=== PATIENT | female | born 1940 | race Caucasian/White ===

== ENCOUNTER → 2017-05-31 | Outpatient (CLI) | payer MEDICARE, OTHER ==
[~2017-05-31] MED LIST: AMLO10 PO; ASCO500 PO; Adult Low Dose81 MG PO; CARV6.25; CBD OIL SL; CHLO25B PO; CHOL10002 PO; CLOP75 PO; Calcium 1,2001 EACH; Coreg12.5 MG PO; DIBU30TO PR; ENOX40I SC; ERGO400 PO; ESTNOR; Estradiol0.5 MG PO; FISH OIL + D31 EACH PO; GLYCOLAX PO; HYDACE25S PR; HYDCHL25 PO; HYDCOR2.5C PR; Hair, Skin & N1 EACH PO; LIVALO2 MG PO; LOVA40; MAGOXI400 PO; MIRALAX17 GM PO; Multiple Vitam1 EAC1 PO; NAPR220; NAPR220 PO; PROM25 PO; Percocet 5-3251 EACH PO; Super B Comple150 MG PO; VENL150ER; VENL37.5 PO; VENL75ER PO; VITAMIN D31000 UNIT; Vitamin B Comple1 EA PO; ZESTRIL40 MG PO; calcium PO
[2017-06-01 14:09] LABS: Stool Occult Bld Immuno 1 Negative (NEGATIVE)
== END | disposition home or self-care (01) ==
LOC: LAB SHORT 17:00 → LAB 17:00 → LAB FUT 05-31 14:20
PROVIDERS: Hospitalist
DX: Z13.89 Encounter for screening for other disorder (principal)
CPT/HCPCS: 82274

== ENCOUNTER 2017-08-10 12:56 | Day surgery (SDC) | payer MEDICARE, OTHER ==
[~2017-08-10] VITALS: Ht 160 cm; Wt 76.2 kg
[~2017-08-10 12:56] MED LIST changes: -CBD OIL SL; -ENOX40I SC; -ERGO400 PO; -Hair, Skin & N1 EACH PO; -PROM25 PO; -Percocet 5-3251 EACH PO; -Vitamin B Comple1 EA PO
[2018-01-09] MEDS ORDERED: Super B Comple150 MG PO (15:26)
[2018-01-09] MEDS ORDERED: ERGO400 PO (15:27)
[2018-01-09] MEDS ORDERED: Hair, Skin & N1 EACH PO (15:27)
[2018-01-09] MEDS ORDERED: Vitamin B Comple1 EA PO (15:36)
[2018-01-09] MEDS ORDERED: CBD OIL SL (15:37)
[2018-01-25] MEDS ORDERED: PROM25 PO (16:33)
[2018-01-25] MEDS ORDERED: Percocet 5-3251 EACH PO (16:34)
[2018-01-25] MEDS ORDERED: ENOX40I SC (16:36)
== END 2017-08-10 15:21 | disposition home or self-care (01) ==
LOC: ORSCSDS 12:56
PROVIDERS: Surgery
PROC: 0DBK8ZX Excision of Ascending Colon, Via Natural or Artificial Opening Endoscopic, Diagnostic (ICD-10-PCS; principal; 2017-08-10 14:15)
DX: K92.1 Melena (principal); D12.2 Benign neoplasm of ascending colon; K64.8 Other hemorrhoids; I25.10 Atherosclerotic heart disease of native coronary artery without angina pectoris; K64.5 Perianal venous thrombosis; Z79.82 Long term (current) use of aspirin; E78.5 Hyperlipidemia, unspecified; I10 Essential (primary) hypertension; Z87.891 Personal history of nicotine dependence; Z79.899 Other long term (current) drug therapy
CPT/HCPCS: 88305

== ENCOUNTER → 2017-11-13 | Outpatient (CLI) | payer MEDICARE, OTHER ==
[~2017-11-13] MED LIST changes: -FISH OIL + D31 EACH PO; +FISH1000; +GLYCOLAX; -GLYCOLAX PO
[2017-11-14 09:07] LABS: Adenovirus F 40/41 Not Detected (NOT DETECT); Astrovirus Not Detected (NOT DETECT); Campylobacter Sp Not Detected (NOT DETECT); Cryptosporidium Not Detected (NOT DETECT); Cyclospora Cayetanensis Not Detected (NOT DETECT); E. Coli O157 Not Detected (NOT DETECT); Entamoeba Histolytica Not Detected (NOT DETECT); Enteroaggregative E. coli-EAEC Not Detected (NOT DETECT); Enteropathogenic E. coli-EPEC Not Detected (NOT DETECT); Enterotoxigenic E. coli-ETEC Not Detected (NOT DETECT); Giardia Lamblia Not Detected (NOT DETECT); Norovirus GI/GII Not Detected (NOT DETECT); Plesiomonas Shigelloides Not Detected (NOT DETECT); Rotavirus A Not Detected (NOT DETECT); Salmonella Sp Not Detected (NOT DETECT); Sapovirus Not Detected (NOT DETECT); Shiga Toxin-prod E. coli-STEC Not Detected (NOT DETECT); Shigella/Enteroin E. coli-EIEC Not Detected (NOT DETECT); Vibrio Cholerae Not Detected (NOT DETECT); Vibrio Sp Not Detected (NOT DETECT); Yersinia Enterocolitica Not Detected (NOT DETECT)
== END ==
LOC: LAB 17:36 → LAB SHORT 17:36
PROVIDERS: Physician Assistant Medical
DX: R10.9 Unspecified abdominal pain (principal)
CPT/HCPCS: 87507

== ENCOUNTER 2018-12-31 01:00 | Observation (INO) | payer MEDICARE, OTHER ==
[~2018-12-31] VITALS: Ht 160 cm; Wt 73.6 kg
[~2018-12-31 01:00] MED LIST changes: +CBD OIL SL; +ENOX40I SC; +FISH OIL + D31 EACH PO; -FISH1000; -GLYCOLAX; +GLYCOLAX PO; +Hair, Skin & N1 EACH PO; +PROM25 PO; +Percocet 5-3251 EACH PO; +Prinivil10 MG PO; +VITAMIN D5000 UNIT PO; +Vitamin B Comple1 EA PO; -ZESTRIL40 MG PO
[2018-12-31 02:40] LABS: BASOPHILS ABSOLUTE AUTO 0.02 K/mm3 (0.00-0.23); BASOPHILS PERCENT AUTO 0 % (0-2); EOSINOPHILS ABSOLUTE AUTO 0.05 K/mm3 (0.00-0.68); EOSINOPHILS PERCENT AUTO 1 % (0-6); Hematocrit 27.3 % (33.0-51.0); Hemoglobin 9.2 g/dL (11.5-16.0); IMMATURE GRAN ABSOLUTE AUTO 0.03 K/mm3 (0.00-0.10); IMMATURE GRAN PERCENT AUTO 0 % (0-1); LYMPHOCYTES ABSOLUTE AUTO 1.46 K/mm3 (0.84-5.20); LYMPHOCYTES PERCENT AUTO 15 % (21-46); MONOCYTES ABSOLUTE AUTO 0.39 K/mm3 (0.16-1.47); MONOCYTES PERCENT AUTO 4 % (4-13); Mean Corpuscular HGB 31.8 pg (26.0-34.0); Mean Corpuscular HGB Conc 33.7 g/dL (31.5-36.5); Mean Corpuscular Volume 95 fL (80-100); Mean Platelet Volume 9.8 fL (9.1-12.4); NEUTROPHILS ABSOLUTE AUTO 7.93 K/mm3 (1.96-9.15); NEUTROPHILS PERCENT AUTO 80 % (41-73); Platelet Count 278 K/mm3 (150-400); RDW Standard Deviation 44.9 fL (35.1-46.3); Red Blood Cell Count 2.89 M/mm3 (3.80-5.20); White Blood Cell Count 9.88 K/mm3 (4.00-11.30)
[2018-12-31 02:45] LABS: Source, Urine Clean Catch
[2018-12-31 02:49] LABS: Bilirubin, Urine Neg (Neg); Blood, Urine Neg (Neg); Glucose Qualitative, Urine Neg (Neg); Ketones, Urine Neg (Neg); Leukocyte Esterase, Urine 1+ (Neg); Nitrite, Urine Neg (Neg); Protein, Urine Neg (Neg); Urobilinogen, Urine NORM (Normal); pH, Urine 6.5 (5.0-8.0)
[2018-12-31 02:57] LABS: Appearance, Urine Clear (Clear); Color, Urine Yellow (P-Yellow)
[2018-12-31 02:58] LABS: Bacteria Few /hpf; Red Blood Cells, Urine 0-2 /hpf (0-2); Squamous Epithelial Cells Few /hpf (Few); White Blood Cells, Urine 0-2 /hpf (0-5)
[2018-12-31 03:01] LABS: Alanine Aminotransfer (ALT/SGP 16 U/L (12-78); Albumin, Blood 3.2 g/dL (3.4-5.0); Albumin/Globulin Ratio 1.1 (0.8-1.8); Alk Phos 53 U/L (50-136); Anion Gap 6 mmol/L (6-16); Aspartate Aminotrans (AST/SGOT 10 U/L (12-37); Bilirubin, Total 0.2 mg/dL (0.1-1.0); Blood Urea Nitrogen 45 mg/dL (8-24); Bun/Creatinine Ratio 83.3 (12.0-20.0); CO2, Blood 29 mmol/L (21-32); Calcium, Blood 8.2 mg/dL (8.5-10.1); Chloride, Blood 98 mmol/L (98-108); Creatinine, Blood 0.54 mg/dL (0.40-1.00); Globulin, Blood 2.8 g/dL (2.2-4.0); Glomerular Filtration Rate >60 (60-); Glucose, Blood 126 mg/dL (70-99); Potassium, Blood 3.7 mmol/L (3.5-5.5); Sodium, Blood 133 mmol/L (136-145); Troponin I <0.015 ng/mL (0.000-0.040)
[2018-12-31] MEDS ORDERED: Carvedilol6.25 MG PO (08:25)
[2018-12-31] MEDS ORDERED: PRAVASTATIN SOD10 MG PO (08:26)
[2018-12-31] MEDS ORDERED: NAPR220 PO (08:27)
[2018-12-31] MEDS ORDERED: MIRALAX17 GM PO (08:28)
[2018-12-31 08:57] LABS: Hemoglobin 8.6 g/dL (11.5-16.0); Mean Corpuscular HGB 32.6 pg (26.0-34.0); Mean Corpuscular HGB Conc 34.4 g/dL (31.5-36.5); Mean Corpuscular Volume 95 fL (80-100); Mean Platelet Volume 9.8 fL (9.1-12.4); Platelet Count 279 K/mm3 (150-400); RDW Coefficient Variation 13.2 % (11.7-14.2); Red Blood Cell Count 2.64 M/mm3 (3.80-5.20); White Blood Cell Count 9.18 K/mm3 (4.00-11.30)
[2018-12-31 09:14] LABS: Alanine Aminotransfer (ALT/SGP 17 U/L (12-78); Albumin, Blood 3.2 g/dL (3.4-5.0); Albumin/Globulin Ratio 1.1 (0.8-1.8); Alk Phos 54 U/L (50-136); Anion Gap 6 mmol/L (6-16); Aspartate Aminotrans (AST/SGOT 11 U/L (12-37); Bilirubin, Total 0.2 mg/dL (0.1-1.0); Blood Urea Nitrogen 32 mg/dL (8-24); Bun/Creatinine Ratio 60.6 (12.0-20.0); CO2, Blood 28 mmol/L (21-32); Calcium, Blood 8.2 mg/dL (8.5-10.1); Chloride, Blood 103 mmol/L (98-108); Creatinine, Blood 0.53 mg/dL (0.40-1.00); Globulin, Blood 2.8 g/dL (2.2-4.0); Glomerular Filtration Rate >60 (60-); Glucose, Blood 113 mg/dL (70-99); Potassium, Blood 3.4 mmol/L (3.5-5.5); Sodium, Blood 137 mmol/L (136-145)
[2018-12-31 15:16] LABS: Hematocrit 24.4 % (33.0-51.0); Hemoglobin 8.3 g/dL (11.5-16.0)
--- NOTE | 2018-12-31 16:46 | NUR ---
INTO [facility] VIA [employer]. HISTORY AND ALLERGIES CONFIRMED. LUNGS CLEAR-NO NOTED SOB. NPO STATUS CONFIRMED.
--- NOTE | 2018-12-31 17:30 | NUR ---
12/31/18 1730 Abi Appiah History, Chart, Medications and Allergies reviewed before start of procedure.PATIENT DETERMINED TO BE ASA APPROPRIATE FOR PROPOFOL SEDATION PRIOR TO START OF PROCEDURE BY .MONITOR INTACT WITH CONTINUOUS PULSE OXIMETRY AND INTERMITTENT BP.3-LEAD EKG REVIEWED WITH PHYSICIAN PRIOR TO START OF PROCEDURE.O2 VIA N/C INTACT THROUGHOUT SEDATION/PROCEDURE.
--- NOTE | 2018-12-31 19:00 | NUR ---
SHIFT SUMMARY PT HAS HAD NO COMPLAINTS THIS SHIFT. PT HAD ENDOSCOPY THIS EVENING WITH DR. FINE. IT WAS FOUND PT HAD SEVERAL ULCERS. PT'S DIET CHANGED TO FULL LIQUID DIET AND PT TOLERATING AT THIS TIME. IV SALINE LOCKED. NO REQUESTS AT THIS TIME. CALL LIGHT IN REACH. WILL CONTINUE TO MONITOR AND REPORT TO ONCOMING RN.
--- NOTE | 2019-01-01 05:57 | NUR ---
SUMMARY: A/OX4, CALLS APPROPRIATELY AND IS PLEASANT/COOPERATIVE W/CARE. SHE REMAINS RELUCTANT TO GET OOB D/T PREVIOUS SYNCOPAL EPISODES BUT HAS DENIED DIZZYNESS/LIGHTHEADEDNESS THIS SHIFT. PT USED BEDSIDE TO VOID AND NO BM'S OR RECTAL BLEEDING OBSERVED TONIGHT. SHE'S TOLERATING HER FULL LIQ DIET AND HAS DENIEND NAUSEA/ABDO DISCOMFORT. PT REMAINS NSR W/1ST BLOCK AT 70'S-80'S BPM. PROTONIX BID WAS COMMENCED THIS AM. NO ACUTE CHANGES, VSS/AFEBRILE AND POSSIBLE D/C TODAY. WCTM AND REPORT TO DAY RN.
[2019-01-01] MEDS ORDERED: FERSU300 PO (09:57)
[2019-01-01] MEDS ORDERED: CARV3.125 PO (09:57)
[2019-01-01] MEDS ORDERED: PANT40 PO (09:58)
--- NOTE | 2019-01-01 12:35 | NUR ---
GI CALL THIS RN CALLED DR. FINE'S OFFICE TO NOTIFY THEM DR. LAWLER WAS DISCHARGING PT IF OK WITH HIM. DR. FINE REPORTED OK FOR PT TO DISCHARGE HOME TODAY AND TO FOLLOW UP WITH HIM IN 6 WEEKS. THIS RN TRIED TO SET UP AN APPOINTMENT BUT THE VICE PRESIDENT REGULATORY REPORTS SHE WILL MAKE A NOTE AND CALL PT TO MAKE APPT.
--- NOTE | 2019-01-01 13:53 | NUR ---
DISCHARGE PT DISCHARGED TO HOME. THIS RN EXPLAINED DISCHARGE INSTRUCTIONS AND MEDICATIONS TO PT AND SHE REPORTS SHE UNDERSTANDS. MEDICATIONS WERE FAXED TO [facility] PER REQUEST. IV REMOVED WITHOUT DIFFICULTY. PT TOOK SHOWER BEFORE DISCHARGE. PT TRANSFERRED TO PRIVATE VEHICLE VIA WHEELCHAIR BY NICK. BELONGINGS WITH PT.
== END 2019-01-01 13:36 | disposition home or self-care (01) ==
LOC: ER 01:00 → MEDS 01:01 → ER 05:23 → MEDS 05:23 → ENPENDDIS 01-01 09:49 → MEDS 01-01 13:36
PROVIDERS: Emergency Medicine; Internal Medicine Gastroenterology; ADMIT Internal Medicine
PROC: 0DB68ZX Excision of Stomach, Via Natural or Artificial Opening Endoscopic, Diagnostic (ICD-10-PCS; principal; 2018-12-31 16:45)
DX: K25.4 Chronic or unspecified gastric ulcer with hemorrhage (principal); D62 Acute posthemorrhagic anemia; K26.4 Chronic or unspecified duodenal ulcer with hemorrhage; I95.1 Orthostatic hypotension; K44.9 Diaphragmatic hernia without obstruction or gangrene; I10 Essential (primary) hypertension; M54.12 Radiculopathy, cervical region; E78.5 Hyperlipidemia, unspecified; F32.9 Major depressive disorder, single episode, unspecified; Z91.041 Radiographic dye allergy status; Z88.8 Allergy status to other drugs, medicaments and biological substances; Z79.899 Other long term (current) drug therapy
CPT/HCPCS: 36415; 80053; 81001; 82941; 84484; 85014; 85018; 85025; 85027; 86850; 86900; 86901; 87086; 88305; 88342; 93005; 93010; 96361; 96365; 96375; 96376; 99285-25; C9113; G0378; J2405; J2704; J2916; J7030; J7120

== ENCOUNTER 2019-02-04 07:17 | Day surgery (SDC) | payer MEDICARE, OTHER ==
[~2019-02-04] VITALS: Ht 154.9 cm; Wt 73.0 kg
[~2019-02-04 07:17] MED LIST changes: +CARV3.125 PO; +Carvedilol6.25 MG PO; +FERSU300 PO; +PANT40 PO; +PRAVASTATIN SOD10 MG PO
[2019-02-04] MEDS ORDERED: Azor 5-20 MG T1 EACH (07:50)
== END 2019-02-04 09:22 | disposition home or self-care (01) ==
LOC: ORSCSDS 07:17
PROVIDERS: Internal Medicine Gastroenterology
PROC: 0D778ZZ Dilation of Stomach, Pylorus, Via Natural or Artificial Opening Endoscopic (ICD-10-PCS; principal; 2019-02-04 08:30)
PROC: 0DB98ZX Excision of Duodenum, Via Natural or Artificial Opening Endoscopic, Diagnostic (ICD-10-PCS; principal; 2019-02-04 08:30)
PROC: 0DB68ZX Excision of Stomach, Via Natural or Artificial Opening Endoscopic, Diagnostic (ICD-10-PCS; principal; 2019-02-04 08:30)
DX: K25.9 Gastric ulcer, unspecified as acute or chronic, without hemorrhage or perforation (principal); K44.9 Diaphragmatic hernia without obstruction or gangrene; K31.1 Adult hypertrophic pyloric stenosis; I10 Essential (primary) hypertension; Z87.891 Personal history of nicotine dependence; Z79.899 Other long term (current) drug therapy
CPT/HCPCS: 88305; 88342; C1726; J0330; J0461; J2405; J2704; J7120

== ENCOUNTER 2021-03-13 21:20 | Inpatient (IN) | payer MEDICARE, OTHER ==
[~2021-03-13] VITALS: Ht 160 cm; Wt 80.7 kg
[~2021-03-13 21:20] MED LIST changes: +Azor 5-20 MG T1 EACH
[2021-03-13 21:48] LABS: BASOPHILS ABSOLUTE AUTO 0.03 K/mm3 (0.00-0.23); BASOPHILS PERCENT AUTO 0 % (0-2); EOSINOPHILS ABSOLUTE AUTO 0.19 K/mm3 (0.00-0.68); EOSINOPHILS PERCENT AUTO 3 % (0-6); Hematocrit 41.9 % (33.0-51.0); Hemoglobin 14.4 g/dL (11.5-16.0); IMMATURE GRAN ABSOLUTE AUTO 0.03 K/mm3 (0.00-0.10); IMMATURE GRAN PERCENT AUTO 0 % (0-1); LYMPHOCYTES ABSOLUTE AUTO 1.41 K/mm3 (0.84-5.20); LYMPHOCYTES PERCENT AUTO 20 % (21-46); MONOCYTES ABSOLUTE AUTO 0.56 K/mm3 (0.16-1.47); MONOCYTES PERCENT AUTO 8 % (4-13); Mean Corpuscular HGB 31.8 pg (26.0-34.0); Mean Corpuscular HGB Conc 34.4 g/dL (31.5-36.5); Mean Corpuscular Volume 93 fL (80-100); Mean Platelet Volume 9.6 fL (9.1-12.4); NEUTROPHILS ABSOLUTE AUTO 4.71 K/mm3 (1.96-9.15); NEUTROPHILS PERCENT AUTO 68 % (41-73); Platelet Count 283 K/mm3 (150-400); RDW Coefficient Variation 13.1 % (11.7-14.2); RDW Standard Deviation 44.5 fL (35.1-46.3); Red Blood Cell Count 4.53 M/mm3 (3.80-5.20); White Blood Cell Count 6.93 K/mm3 (4.00-11.30)
[2021-03-13 22:08] LABS: Alanine Aminotransfer (ALT/SGP 34 U/L (12-78); Albumin, Blood 3.7 g/dL (3.4-5.0); Albumin/Globulin Ratio 0.9 (0.8-1.8); Alk Phos 105 U/L (50-136); Anion Gap 6 mmol/L (6-16); Aspartate Aminotrans (AST/SGOT 27 U/L (12-37); Bilirubin, Total 0.3 mg/dL (0.1-1.0); Blood Urea Nitrogen 20 mg/dL (8-24); Bun/Creatinine Ratio 28.8 (12.0-20.0); CO2, Blood 25 mmol/L (21-32); Calcium, Blood 9.1 mg/dL (8.5-10.1); Chloride, Blood 100 mmol/L (98-108); Creatinine, Blood 0.69 mg/dL (0.40-1.00); Globulin, Blood 4.1 g/dL (2.2-4.0); Glomerular Filtration Rate >60 (60-); Glucose, Blood 139 mg/dL (70-99); Sodium, Blood 131 mmol/L (136-145); Total Protein, Blood 7.8 g/dL (6.4-8.2); Troponin I <0.015 ng/mL (0.000-0.040)
[2021-03-14] MEDS ORDERED: EZET10 PO (00:34)
[2021-03-14] MEDS ORDERED: ZINC15 PO (00:34)
[2021-03-14] MEDS ORDERED: CLOP75 PO (00:34)
[2021-03-14] MEDS ORDERED: OMEP20ER PO (00:35)
--- NOTE | 2021-03-14 05:52 | NUR ---
SHIFT SUMMARY PATIENT ADMITTED TO FLOOR AT APPROXIMETLY 0445 FROM ED. PATIENT IS A&OX4, FOLLOWING COMMANDS. VSS. 1ST DEGREE BLOCK IN THE 50'S-60'S ON THE TELE MONITOR. COMPLAINTS OF 6/10 BURNING CP SHORTLY AFTER ARRIVAL. PRN MORPHINE GIVEN WITH GOOD RELIEF AND NO PAIN AT THIS TIME. ALSO VERY NAUSEOUS INTERMITTENTLY. NPO UNTIL KNOW MORE ABOUT PLAN. STEADY UP TO BATHROOM WITHOUT ISSUE. NO ACUTE CONCERNS AT THIS TIME. WILL CONTINUE PLAN OF CARE UNTIL REPORT GIVEN TO DAYSHIFT RN.
--- NOTE | 2021-03-14 08:50 | NUR ---
CARE ASSUMPTION ASSUMED CARE OF THIS PATIENT AT 0700. PATIENT A/OX4. VSS. SPO2 >90% ON RA. TELE SINUS WITH A FIRST DEGREE AV BLOCK 60S. PATIENT REPORTS NO CHEST PAIN, PAIN, OR SOB. PATIENT IS INDEPENDENT IN THE ROOM AND CALLS WHEN NEEDING HELP. CALL LIGHT WITHIN REACH AND BED IN LOWEST POSITION. WILL CONTINUE TO MONITOR AND PROVIDE CARE.
--- NOTE | 2021-03-14 10:13 | NUR ---
CRITICAL VALUE THIS RN RECEIVED A PHONE CALL FROM LAB WITH A CRITICAL HIGH TROP LEVEL AT 6.05 AT 0918 FROM [facility]. THIS RN NOTIFED RADIO ASSEMBLER @ 0918 AND CALLED MD SOARES @ 0919. SPOKE WITH MD SOARES AND PUT IN RETREAD SUPERVISOR CONSULT. PATIENT STATED NO CHEST PAIN AND BP WAS 119/70. MD BRENNER IN TO SEE PATIENT AT APROX 0925, EKG WAS DONE. PATIENT WAS NOT HAVING CHEST PAIN. PATIENT GOT UP TO USE THE BATHROOM AT APROX 0945 AND REPORTED CHEST PAIN. RATED CHEST PAIN AT 3/10. PATIENT RECEIVED FIRST NITRO AT 094P. AT 0952 BP WAS 140/85 AND PAIN 3/10. AT 0954 ANOTHER NITRO WAS GIVEN WITH CHEST PAIN AT 3/10. @ 0957 BP 128/78 3/10 CHEST PAIN. AT 0959 3 NITRO ADMINISTERED CHEST PAIN 3/10. AT 1002 BP WAS 110/64. PATIENT BEGAN TO BECOME NAUSEOUS AND ZOFRAN WAS GIVEN AT 1007 AND PATIENT REPORTS NO CHEST PAIN AT THIS TIME. INFORMED PATIENT TO CALL IF CHEST PAIN COMES BACK. CALL LIGHT WITHIN REACH AND WILL CONTINUE TO MONITOR AND PROVIDE CARE.
[2021-03-14 15:22] LABS: Influenza A, PCR NEGATIVE (NEGATIVE); Influenza B, PCR NEGATIVE (NEGATIVE); Resp Syncytial Virus, PCR NEGATIVE (NEGATIVE); SARS-Cov-2 (COVID-19) PCR, MMC NEGATIVE (NEGATIVE)
--- NOTE | 2021-03-14 17:55 | NUR ---
SHIFT SUMMARY/CRITICAL VALUE CRITICAL TROP VALUE 13.01, THIS RN NOTIFED AT 1703 BY TIMUR IN LAB. THIS RN NOTIFED CHARGED RN VIRAL AT 1703. PATIENT WAS AT LEATHER COVERER AT THE TIME OF THIS RN BEING NOTIFED. PATIENT LEFT TO LEATHER COVERER APROX 1650. PATIENT A/OX4. VSS. TELE FIRST DEGREE AV BLOCK 60S. SPO2 >90% ON RA. PATIENT HAS HAD NO CHEST PAIN SINCE LAST EPISODE OF CHEST PAIN. SEE PERVIOUS NOTE. NO ACUTE CHANGES THIS SHIFT. WILL CONTINUE TO MONITOR AND PROVIDE CARE UNTIL HAND OFF WITH NEXT SHIFT.
--- NOTE | 2021-03-14 18:54 | NUR ---
ARRIVAL FROM COLLOID MILL OPERATOR PATIENT ARRIVED BACK FROM COLLOID MILL OPERATOR AT 1828. RADIAL SITE CLEAN, NO BLEEDING, NO HEMATOMA, AND NON TENDER. Q15 VSS FOR 1 HR. Q30 FOR 1HR. Q1HR FOR 4HR. WILL CONTINUE TO MONITOR AND PROVIDE CARE UNTIL HAND OFF
--- NOTE | 2021-03-15 04:05 | NUR ---
SHIFT SUMMARY PATIENT IS ALERT AND ORIENTED X4. REPORTS 1/10 CHEST DISCOMFORT AT TIMES, PATIENT SR 1ST DEGREE BLOCK IN THE 70s-80s. TR BAND REMOVED AT APPROX 0300, HAD TO REINFLATE D/T SMALL AMOUNT OF BLEEDING. TEGADERM IN PLACE AND ARM BOARD IN PLACE, PATIENT TEACHING PROVIDED ABOUT NOT USING THAT ARM. 02 SATS >95% ON RA. PATIENT ABLE TO AMBULATE. SLEPT MOST THE NIGHT. CALL LIGHT IN REACH.
[2021-03-15] MEDS ORDERED: NITR.4SL SL (10:23)
[2021-03-15] MEDS ORDERED: ASPI81CH PO (10:23)
[2021-03-15] MEDS ORDERED: FAMO40 PO (10:23)
--- NOTE | 2021-03-15 10:28 | NUR ---
80 YOF presented to the ED yesterday due to worsening CP. NSTEMI diagnosis and received cardiac stent mid RCA. Pt. doing well today. Repeat echo demonstrated normal ejection fraction. Pt. cleared by cardiology. Dr. Govea discharging pt. home. Need for continued DAPT x [address] George next month. Scheduled pt. for hospital F/U with PCP Dr. Johnson on 03/24/21 at 3:20 PM per request. No further needs at this time.
--- NOTE | 2021-03-15 11:37 | NUR ---
DISCHARGE UPDATE PT DISCHARGED AT 1137. PT LEFT VIA WHEEL CHAIR WITH BELONGINGS IN BAG AND DISCHARGE INFORMATION ALSO IN BAG. PT WAS OCCOMPANIED BY 2 RN. PT SPOUSE PICKING UP PT AT [facility].
== END 2021-03-15 11:38 | disposition home or self-care (01) | DRG 247 ==
LOC: ER 21:20 → PCU 21:21
PROVIDERS: Internal Medicine Cardiovascular Disease; Physician Assistant; ADMIT Internal Medicine
PROC: 027034Z Dilation of Coronary Artery, One Artery with Drug-eluting Intraluminal Device, Percutaneous Approach (ICD-10-PCS; principal; 2021-03-14)
PROC: 4A023N7 Measurement of Cardiac Sampling and Pressure, Left Heart, Percutaneous Approach (ICD-10-PCS; 2021-03-14)
PROC: B2111ZZ Fluoroscopy of Multiple Coronary Arteries using Low Osmolar Contrast (ICD-10-PCS; 2021-03-14)
DX: I21.4 Non-ST elevation (NSTEMI) myocardial infarction (principal); E87.1 Hypo-osmolality and hyponatremia; E78.00 Pure hypercholesterolemia, unspecified; M54.12 Radiculopathy, cervical region; E78.5 Hyperlipidemia, unspecified; Z96.653 Presence of artificial knee joint, bilateral; I44.30 Unspecified atrioventricular block; Z20.822 Contact with and (suspected) exposure to COVID-19; I10 Essential (primary) hypertension; I25.10 Atherosclerotic heart disease of native coronary artery without angina pectoris; K44.9 Diaphragmatic hernia without obstruction or gangrene; F32.A Depression, unspecified; K21.00 Gastro-esophageal reflux disease with esophagitis, without bleeding; Z88.8 Allergy status to other drugs, medicaments and biological substances; Z91.041 Radiographic dye allergy status; Z90.89 Acquired absence of other organs; Z98.890 Other specified postprocedural states; Z90.710 Acquired absence of both cervix and uterus; Z87.891 Personal history of nicotine dependence; Z98.42 Cataract extraction status, left eye; Z98.41 Cataract extraction status, right eye; Z79.899 Other long term (current) drug therapy; Z79.02 Long term (current) use of antithrombotics/antiplatelets; Z87.11 Personal history of peptic ulcer disease
CPT/HCPCS: 0241U; 36415; 71046; 71260; 76937; 80053; 83690; 84484; 85025; 85347; 85379; 90686; 93005; 93010; 93308; 93321; 93458; 96372; 96375; 96376; 99152; 99153; 99285-25; A9270; C1725; C1751; C1769; C1874; C1887; C1894; C9113; C9600; G0008; G0378; J0153; J0461; J1644; J1650; J1720; J2250; J2270; J2405; J3010; J7030; J7050; Q9967

== ENCOUNTER → 2021-08-24 | Outpatient (CLI) | payer MEDICARE, OTHER ==
[~2021-08-24] MED LIST changes: +ASPI81CH PO; +EZET10 PO; +FAMO40 PO; +NITR.4SL SL; +OMEP20ER PO; +ZINC15 PO
== END | disposition home or self-care (01) ==
LOC: LAB 15:32 → LAB SHORT 15:32
DX: L29.3 Anogenital pruritus, unspecified (principal)
CPT/HCPCS: 87070; 87077; 87186; 87205

== ENCOUNTER 2022-11-29 09:39 | Day surgery (SDC) | payer MEDICARE, OTHER ==
[~2022-11-29] VITALS: Ht 157.5 cm; Wt 77.9 kg
[2022-11-29] MEDS ORDERED: REPATHA SY140 MG/1 M (10:10)
[2022-11-29 12:12] VITALS: BP 114/74
== END 2022-11-29 12:11 | disposition home or self-care (01) ==
LOC: ORSCSDS 09:39
PROVIDERS: Surgery
PROC: 0DBN8ZX Excision of Sigmoid Colon, Via Natural or Artificial Opening Endoscopic, Diagnostic (ICD-10-PCS; principal; 2022-11-29 10:45)
DX: Z12.11 Encounter for screening for malignant neoplasm of colon (principal); Z86.010 Personal history of colon polyps; D12.5 Benign neoplasm of sigmoid colon; K57.30 Diverticulosis of large intestine without perforation or abscess without bleeding; E78.5 Hyperlipidemia, unspecified; I10 Essential (primary) hypertension; F32.A Depression, unspecified; I25.10 Atherosclerotic heart disease of native coronary artery without angina pectoris; I21.9 Acute myocardial infarction, unspecified; Z87.891 Personal history of nicotine dependence; Z79.899 Other long term (current) drug therapy
CPT/HCPCS: 88305; J2704; J7120

== ENCOUNTER 2023-01-25 12:26 | Inpatient (IN) | payer MEDICARE, OTHER ==
[~2023-01-25] VITALS: Ht 157.5 cm; Wt 78.7 kg
[~2023-01-25 12:26] MED LIST changes: +REPATHA SY140 MG/1 M
[2023-01-25 13:07] LABS: BASOPHILS ABSOLUTE AUTO 0.03 K/mm3 (0.00-0.23); BASOPHILS PERCENT AUTO 0 % (0-2); EOSINOPHILS ABSOLUTE AUTO 0.01 K/mm3 (0.00-0.68); EOSINOPHILS PERCENT AUTO 0 % (0-6); Hematocrit 43.7 % (33.0-51.0); Hemoglobin 14.8 g/dL (11.5-16.0); IMMATURE GRAN ABSOLUTE AUTO 0.03 K/mm3 (0.00-0.10); IMMATURE GRAN PERCENT AUTO 0 % (0-1); LYMPHOCYTES ABSOLUTE AUTO 1.44 K/mm3 (0.84-5.20); LYMPHOCYTES PERCENT AUTO 14 % (21-46); MONOCYTES ABSOLUTE AUTO 1.04 K/mm3 (0.16-1.47); MONOCYTES PERCENT AUTO 10 % (4-13); Mean Corpuscular HGB Conc 33.9 g/dL (31.5-36.5); Mean Corpuscular Volume 92 fL (80-100); Mean Platelet Volume 10.3 fL (9.1-12.4); NEUTROPHILS ABSOLUTE AUTO 7.73 K/mm3 (1.96-9.15); NEUTROPHILS PERCENT AUTO 75 % (41-73); Platelet Count 296 K/mm3 (150-400); RDW Coefficient Variation 13.8 % (11.7-14.2); RDW Standard Deviation 47.2 fL (35.1-46.3); Red Blood Cell Count 4.77 M/mm3 (3.80-5.20); White Blood Cell Count 10.28 K/mm3 (4.00-11.30)
[2023-01-25 13:25] LABS: Alanine Aminotransfer (ALT/SGP 29 U/L (12-78); Albumin, Blood 3.5 g/dL (3.4-5.0); Albumin/Globulin Ratio 0.9 (0.8-1.8); Alk Phos 79 U/L (50-136); Anion Gap 7 mmol/L (6-16); Aspartate Aminotrans (AST/SGOT 22 U/L (12-37); Bilirubin, Direct <0.1 mg/dL (0.0-0.3); Bilirubin, Indirect Unable to Calculate mg/dL (0.1-0.7); Bilirubin, Total 0.3 mg/dL (0.1-1.0); Blood Urea Nitrogen 39 mg/dL (8-24); Bun/Creatinine Ratio 56.9 (12.0-20.0); CO2, Blood 22 mmol/L (21-32); Calcium, Blood 9.2 mg/dL (8.5-10.1); Chloride, Blood 106 mmol/L (98-108); Creatinine, Blood 0.69 mg/dL (0.40-1.00); Globulin, Blood 3.9 g/dL (2.2-4.0); Glomerular Filtration Rate 88 (60-); Glucose, Blood 136 mg/dL (70-99); Potassium, Blood 4.5 mmol/L (3.5-5.5); Sodium, Blood 135 mmol/L (136-145); Total Protein, Blood 7.4 g/dL (6.4-8.2)
[2023-01-25 17:11] VITALS: BP 127/77
--- NOTE | 2023-01-25 19:23 | NUR ---
SHIFT SUMMARY PT A&OX4, VSS/RA, N&V TREATED PER EMAR, DENIES PAIN, SHOWERED/SURGICAL INFECTION PREVENTION WASH COMPLETE, AMB SBA, VOIDING, PLAN FOR O.R. TOMORROW. REPORT TO TI AIKEN.
[2023-01-25 19:53] VITALS: BP 135/70
[2023-01-26] VITALS (17 sets, daily range): BP systolic 97–139; BP diastolic 51–85
--- NOTE | 2023-01-26 05:49 | NUR ---
SHIFT SUMMARY ADMIT FOR ACUTE CHOLECYSTITIS. A&OX4, VSS, INDEPENDANT TO BATHROOM, MEDICATED X2 FOR 3-4/10 PAIN AND NAUSEA X1. PT AWAITING PLANS FOR APPENDECTOMY TODAY, THEN HOPES FOR DISCHARGE HOME. CALL LIGHT W/IN REACH.
--- NOTE | 2023-01-26 13:15 | NUR ---
PT IN O.R., NPO ALL SHIFT, INDEPENDENT TO BRP, VOIDING, IVF/ABX INFUSING PER EMAR, PAIN AND N&V MANAGED PER EMAR.
--- NOTE | 2023-01-26 13:24 | NUR ---
[facility]IR[facility] inTO Day Surgery. Patient confirms NPO status and agrees with scheduled surgery. Pre-Op teaching done. Pt verbalizes understanding. History, Chart, Medications and Allergies reviewed before start of procedure.
--- NOTE | 2023-01-26 18:25 | NUR ---
SHIFT SUMMARY PT A&OX4, VSS/RA, CARO PO, VOIDING, AMB SBA, PAIN TREATED WITH OXY 5, IVF @ 75 MLS/HR. S/P LAP LALI, 4 LAP SITES CDI. WILL REPORT TO ONCOMING NOC ATTILA.
--- NOTE | 2023-01-27 01:08 | NUR ---
PT REPORTS POOR PAIN CONTROL AND FEELING PAIN IS "DIFFERENT THAN GALL BLADDER PAIN"PT HAS SLIGHTLY FIRMER AREA MID ABD, ALTHOUGH THIS IS NOT WHERE PT POINTS TO WHEN DISCUSSING PAIN.POINTS TO RUQ.PT WORRYING VERB HX OF BLEEDING ULCER WITH "2 DIFFERENT TYPES OF PAIN PRIOR TO ADMIT AND 1 PAIN HAS RESOLVED WHILE OTHER HAS NOT" VSS.I CALLED DR SCOTT AND RECEIVED ORDERS FOR DILAUDID X1 AND HEMOGRAM.
[2023-01-27 01:40] LABS: Hematocrit 25.5 % (33.0-51.0); Hemoglobin 8.7 g/dL (11.5-16.0); Mean Corpuscular HGB 31.8 pg (26.0-34.0); Mean Corpuscular HGB Conc 34.1 g/dL (31.5-36.5); Mean Corpuscular Volume 93 fL (80-100); Mean Platelet Volume 10.1 fL (9.1-12.4); Platelet Count 191 K/mm3 (150-400); RDW Coefficient Variation 14.4 % (11.7-14.2); RDW Standard Deviation 48.7 fL (35.1-46.3); Red Blood Cell Count 2.74 M/mm3 (3.80-5.20)
--- NOTE | 2023-01-27 02:03 | NUR ---
HEMOGRAM RESULTS CALLED TO DR SCOTT. ADVISED TO MONITOR WITH NO NEW ORERS RECEIVED.
[2023-01-27 02:44] VITALS: BP 121/67
[2023-01-27 06:55] LABS: Hematocrit 23.8 % (33.0-51.0); Hemoglobin 8.1 g/dL (11.5-16.0)
[2023-01-27 07:20] VITALS: BP 123/74
--- NOTE | 2023-01-27 07:53 | NUR ---
SUMMARY DR SCOTT CHECKED ON PT THIS AM VERB THAT DAY DOCTOR WILL FOLLOW UP. DR SOARES ORDERED F/U LAB AND SAW PT. REPEAT LAB 8.06/13.8 I REPORTED THESE RESULTS TO DR SOARES.DR WONG WILL DIXIE PT. PT REPORTS PAIN IS IMPROVED. VS REMAINED STABLE T/O SHIFT. PT ALERT AND OOB FOR VOID WITH SBA THIS AM.
[2023-01-27 12:19] LABS: BASOPHILS PERCENT AUTO 0 % (0-2); EOSINOPHILS PERCENT AUTO 0 % (0-6); Hematocrit 23.2 % (33.0-51.0); Hemoglobin 7.9 g/dL (11.5-16.0); IMMATURE GRAN ABSOLUTE AUTO 0.02 K/mm3 (0.00-0.10); IMMATURE GRAN PERCENT AUTO 0 % (0-1); LYMPHOCYTES ABSOLUTE AUTO 0.91 K/mm3 (0.84-5.20); LYMPHOCYTES PERCENT AUTO 14 % (21-46); MONOCYTES ABSOLUTE AUTO 0.45 K/mm3 (0.16-1.47); MONOCYTES PERCENT AUTO 7 % (4-13); Mean Corpuscular HGB 31.6 pg (26.0-34.0); Mean Corpuscular HGB Conc 34.1 g/dL (31.5-36.5); Mean Corpuscular Volume 93 fL (80-100); Mean Platelet Volume 9.7 fL (9.1-12.4); NEUTROPHILS ABSOLUTE AUTO 5.01 K/mm3 (1.96-9.15); NEUTROPHILS PERCENT AUTO 79 % (41-73); Platelet Count 185 K/mm3 (150-400); RDW Coefficient Variation 14.2 % (11.7-14.2); RDW Standard Deviation 48.2 fL (35.1-46.3); White Blood Cell Count 6.39 K/mm3 (4.00-11.30)
[2023-01-27 14:09] VITALS: BP 112/66
--- NOTE | 2023-01-27 15:57 | NUR ---
SUMMARY: PT IS POD1 LAP LALI. A/O, VSS. SURGICAL SITES WNL AND PAIN APPEARS TO BE MANAGED WITH 1 OXY. PT AMBULATORY IN ROOM, VOIDING. CT OF ABD/PELVIS COMPLETED TODAY, NO BLEED NOTED. PLAN IS FOR GI CONSULT, AVALIBLE MONDAY AND FOR CONTINUING TO MONITOR HGB. PT DENIES ANY DIZZINESS. PT AWARE OF PLAN OF CARE.
[2023-01-27 19:34] VITALS: BP 101/57
[2023-01-28 04:53] LABS: BASOPHILS ABSOLUTE AUTO 0.01 K/mm3 (0.00-0.23); BASOPHILS PERCENT AUTO 0 % (0-2); EOSINOPHILS ABSOLUTE AUTO 0.03 K/mm3 (0.00-0.68); EOSINOPHILS PERCENT AUTO 1 % (0-6); Hematocrit 21.7 % (33.0-51.0); Hemoglobin 7.2 g/dL (11.5-16.0); IMMATURE GRAN PERCENT AUTO 0 % (0-1); LYMPHOCYTES ABSOLUTE AUTO 1.48 K/mm3 (0.84-5.20); LYMPHOCYTES PERCENT AUTO 29 % (21-46); MONOCYTES ABSOLUTE AUTO 0.32 K/mm3 (0.16-1.47); MONOCYTES PERCENT AUTO 6 % (4-13); Mean Corpuscular HGB 31.6 pg (26.0-34.0); Mean Corpuscular HGB Conc 33.2 g/dL (31.5-36.5); Mean Corpuscular Volume 95 fL (80-100); NEUTROPHILS ABSOLUTE AUTO 3.21 K/mm3 (1.96-9.15); NEUTROPHILS PERCENT AUTO 64 % (41-73); Platelet Count 184 K/mm3 (150-400); RDW Coefficient Variation 14.4 % (11.7-14.2); RDW Standard Deviation 50.3 fL (35.1-46.3); Red Blood Cell Count 2.28 M/mm3 (3.80-5.20); White Blood Cell Count 5.05 K/mm3 (4.00-11.30)
[2023-01-28 05:03] VITALS: BP 128/67
[2023-01-28 05:14] LABS: Albumin, Blood 2.6 g/dL (3.4-5.0); Bilirubin, Total 0.2 mg/dL (0.1-1.0); Bun/Creatinine Ratio 22.1 (12.0-20.0); Calcium, Blood 7.7 mg/dL (8.5-10.1); Creatinine, Blood 0.77 mg/dL (0.40-1.00); Globulin, Blood 2.6 g/dL (2.2-4.0); Potassium, Blood 4.7 mmol/L (3.5-5.5); Total Protein, Blood 5.2 g/dL (6.4-8.2)
--- NOTE | 2023-01-28 06:10 | NUR ---
SHIFT SUMMARY POD#2 LAP LALI NO ACUTE CHANGES NOTED THROUGH THE NIGHT, PT REMAINS A&O X4, ON RA, VSS, 1 PERSON ASSIST TO THE BATHROOM, SLIGHT DIZZINESS REPORTED UPON STANDING BUT QUICKLY RECOVERS, PT IS TOLERATING PO INTAKE, DENIES NAUSEA/EMESIS, NO STOOLS REPORTED, PASSING FLATUS, VOIDING WNL, LAP SITES X4, C/D/I, PAIN MANAGED PER EMAR, DB&C WHILE SPLINTING ENC, PT RESTING QUIETLY THIS AM, CALL LIGHT IN REACH, WCTM & REPORT TO DAY RN.
[2023-01-28 07:16] VITALS: BP 105/61
--- NOTE | 2023-01-28 19:23 | NUR ---
SHIFT SUMMARY PT POD 2 LAP LALI. LAP SITES C/D/I. PAIN WELL MANAGED WITH PO PAIN MED. PLAN TO RECHECK HGB IN AM, FOLLOW UP WITH GI
[2023-01-28 19:30] VITALS: BP 105/58
--- NOTE | 2023-01-28 20:10 | NUR ---
MEDICATION REFUSAL PT DECLINES HS MEDICATIONS OF HEPARIN AND SENOKOT. PT REPORTS UNSURE OF TAKING HEPARIN R/T CURRENT DECLINE IN HEMOGLOBIN. EDUCATED PT OF RISKS AND PT HX OF [place]. PT VERBALIZES UNDERSTANDING BUT REPORTS SHE IS REQUESTING ENDOSCOPY POSSIBLY TOMORROW AND WILL F/U W/ PCP REGARDING HEPARIN AND SCOPE/ BLEEDING RISKS. PT AGREED TO PLACEMENT OF SCD'S AT THIS TIME. PT ALSO DECLINED SENOKOT DOSE THIS EVENING R/T MIRLAX ORDERED/ RECEIVING
[2023-01-29 04:31] VITALS: BP 138/64
[2023-01-29 04:41] LABS: BASOPHILS ABSOLUTE AUTO 0.02 K/mm3 (0.00-0.23); BASOPHILS PERCENT AUTO 0 % (0-2); EOSINOPHILS ABSOLUTE AUTO 0.25 K/mm3 (0.00-0.68); EOSINOPHILS PERCENT AUTO 5 % (0-6); Hemoglobin 7.4 g/dL (11.5-16.0); IMMATURE GRAN ABSOLUTE AUTO 0.03 K/mm3 (0.00-0.10); IMMATURE GRAN PERCENT AUTO 1 % (0-1); LYMPHOCYTES ABSOLUTE AUTO 2.14 K/mm3 (0.84-5.20); LYMPHOCYTES PERCENT AUTO 39 % (21-46); MONOCYTES ABSOLUTE AUTO 0.39 K/mm3 (0.16-1.47); MONOCYTES PERCENT AUTO 7 % (4-13); Mean Corpuscular HGB 30.8 pg (26.0-34.0); Mean Corpuscular HGB Conc 32.2 g/dL (31.5-36.5); Mean Corpuscular Volume 96 fL (80-100); Mean Platelet Volume 9.9 fL (9.1-12.4); NEUTROPHILS ABSOLUTE AUTO 2.66 K/mm3 (1.96-9.15); NEUTROPHILS PERCENT AUTO 48 % (41-73); Platelet Count 216 K/mm3 (150-400); RDW Coefficient Variation 14.5 % (11.7-14.2); RDW Standard Deviation 50.9 fL (35.1-46.3); White Blood Cell Count 5.49 K/mm3 (4.00-11.30)
--- NOTE | 2023-01-29 05:48 | NUR ---
SHIFT SUMMARY POD 3, LAP LALI, 4 INCISION SITES C/D/I W/ TISSUE ADHESIVE. PT REPORTS CONTINUED PAIN TO RUQ. MEDICATED 2X THIS SHIFT FOR 3/10 PAIN W/ 5MG OXY AND FOLLOWED BY 1MG MORPHINE W/ GOOD RESULTS. PT HOPEFULL FOR ENDOSCOPY TODAY, PT CURRENTLY NPO PER ORDERS. HEMOGLOBIN INCREASED MINIMALLY THIS A.M. PT A&OX4, VERY PLEASANT AND COOPERATIVE. INDEPEND IN ROOM TO BATHROOM. NO ACUTE CHANGES THIS SHIFT.
[2023-01-29 07:28] VITALS: BP 120/54
[2023-01-29 14:33] VITALS: BP 106/56
--- NOTE | 2023-01-29 15:59 | NUR ---
SHIFT SUMMARY PT HAS BEEN IN [employer] TODAY & IS HAVING A "LAZY DAY". GOT UP IN ROOM & SHOWERED TODAY. PAIN IS TOLERABLE. DECLINED A PAIN PILL THIS AFTERNOON. PASSING GAS & AGREED TO MIRALAX THIS AFTERNOON, BUT BRYANT VERY SMALL BM EARLY THIS AM. TOLERATING REG DIET & UNDERSTANDS PLANS FOR DIET T/O NIGHT IN PREP FOR EGD TOMORROW AFTERNOON.
[2023-01-29 19:24] VITALS: BP 115/56
[2023-01-30] VITALS (14 sets, daily range): BP systolic 75–132; BP diastolic 34–90
[2023-01-30 04:51] LABS: BASOPHILS ABSOLUTE AUTO 0.02 K/mm3 (0.00-0.23); BASOPHILS PERCENT AUTO 0 % (0-2); EOSINOPHILS ABSOLUTE AUTO 0.42 K/mm3 (0.00-0.68); EOSINOPHILS PERCENT AUTO 6 % (0-6); Hematocrit 26.1 % (33.0-51.0); Hemoglobin 8.7 g/dL (11.5-16.0); IMMATURE GRAN ABSOLUTE AUTO 0.05 K/mm3 (0.00-0.10); IMMATURE GRAN PERCENT AUTO 1 % (0-1); LYMPHOCYTES PERCENT AUTO 24 % (21-46); MONOCYTES ABSOLUTE AUTO 0.61 K/mm3 (0.16-1.47); MONOCYTES PERCENT AUTO 8 % (4-13); Mean Corpuscular HGB 31.8 pg (26.0-34.0); Mean Corpuscular HGB Conc 33.3 g/dL (31.5-36.5); Mean Corpuscular Volume 95 fL (80-100); Mean Platelet Volume 10.2 fL (9.1-12.4); NEUTROPHILS PERCENT AUTO 62 % (41-73); Platelet Count 309 K/mm3 (150-400); RDW Coefficient Variation 14.2 % (11.7-14.2); RDW Standard Deviation 48.7 fL (35.1-46.3); Red Blood Cell Count 2.74 M/mm3 (3.80-5.20)
[2023-01-30 05:12] LABS: Albumin, Blood 3.2 g/dL (3.4-5.0); Anion Gap 3 mmol/L (6-16); Blood Urea Nitrogen 13 mg/dL (8-24); Bun/Creatinine Ratio 18.9 (12.0-20.0); CO2, Blood 32 mmol/L (21-32); Calcium, Blood 8.6 mg/dL (8.5-10.1); Chloride, Blood 103 mmol/L (98-108); Creatinine, Blood 0.69 mg/dL (0.40-1.00); Glomerular Filtration Rate 88 (60-); Glucose, Blood 118 mg/dL (70-99); Phosphorus, Blood 3.7 mg/dL (2.5-4.9); Potassium, Blood 3.8 mmol/L (3.5-5.5); Sodium, Blood 138 mmol/L (136-145)
--- NOTE | 2023-01-30 05:23 | NUR ---
SHIFT SUMMARY POD 4 LAP LALI, 4 LAP SITES C/D/I, ABD TENDERNESS TO R LOWER ABD, MILD FIRMNESS TO LOWER ABD. A&OX4, VERY PLEASANT AND COOPERATIVE, INDEPENDANT IN ROOM TO BATHROOM. PT AMBULATED IN MORAN 2X W/ FWW/GB/STAFF ASSIST. TOLERATED WELL. ENCOURAGED TO AMBULATE FREQUENTLY. PT AWARE OF CL DIET TILL NOON, THEN NPO FOR ENDOSCOPY THIS AFTERNOON. INCREASE IN HgB FROM 7.4 YESTERDAY TO 8.7 TODAY. PT HOPES FOR DISCHARGE TO HOME TODAY FOLLOWING SCOPE. NO ACUTE CHANGES THIS SHIFT.
--- NOTE | 2023-01-30 16:09 | NUR ---
History, Chart, Medications and Allergies reviewed before start of procedure. Lungs clear T/O to Auscultation. Patient confirms NPO status and agrees with scheduled surgery. Pre-Op teaching done. Pt verbalizes understanding. R FA IV PAINFUL TO FLUSH, NO BLOOD RETURN. IV DC'D INTACT.
--- NOTE | 2023-01-30 16:20 | NUR ---
01/30/23 7652 Florence Colunga HISTORY, CHART, MEDICATIONS AND ALLERGIES REVIEWED BEFORE START OF PROCEDURE. PATIENT CONFIRMS NPO STATUS AND AGREES WITH SCHEDULED PROCEDURE. 3-LEAD EKG REVIEWED WITH PHYSICIAN PRIOR TO START OF PROCEDURE. MONITOR INTACT WITH CONTINUOUS PULSE OXIMETRY,CAPNOGRAPHY, 3-LEAD EKG, INTERMITTENT BP. SUPPLEMENTAL O2 TO BE TITRATED THROUGHOUT PROCEDURE TO MAINTAIN O2 SATURATION ABOVE 90%. PATIENT DETERMINED TO BE ASA APPROPRIATE FOR PROPOFOL SEDATION PRIOR TO START OF PROCEDURE BY DR. FINE
[2023-01-30] MEDS ORDERED: OXAYDO5 M2 PO (17:32)
[2023-01-30] MEDS ORDERED: CLOP75 PO (17:33)
[2023-01-30] MEDS ORDERED: PANT40 PO (17:33)
--- NOTE | 2023-01-30 18:00 | NUR ---
DISCHARGE SUMMARY PT A&OX4, VSS/RA, CARO PO, VOIDING, AMB INDEPENDENTLY, PAIN MANAGED, IV DC'D. DC INS PROVIDED. PT REP UNDERSTANDING THOSE INSTRUCTIONS INCLUDING FU WITH PCP, GI AND GEN SURGERY AND MEDS AT PHARMACY. LEFT FLOOR VIA WC WITH DRY CANS OPERATOR TO GO HOME WITH WITH ALL PERSONAL POSSESSIONS INCLUDING DC PACKET.
== END 2023-01-30 17:57 | disposition home or self-care (01) | DRG 417 ==
LOC: ER 12:26 → SURS 12:27
PROVIDERS: Internal Medicine; Student in an Organized Health Care Education/Training Program; Surgery; ADMIT Family Medicine
PROC: 0FT44ZZ Resection of Gallbladder, Percutaneous Endoscopic Approach (ICD-10-PCS; principal; 2023-01-26 13:30)
PROC: 0DB68ZX Excision of Stomach, Via Natural or Artificial Opening Endoscopic, Diagnostic (ICD-10-PCS; 2023-01-30)
DX: K80.00 Calculus of gallbladder with acute cholecystitis without obstruction (principal); K22.11 Ulcer of esophagus with bleeding; K25.4 Chronic or unspecified gastric ulcer with hemorrhage; D62 Acute posthemorrhagic anemia; I50.30 Unspecified diastolic (congestive) heart failure; I11.0 Hypertensive heart disease with heart failure; K44.9 Diaphragmatic hernia without obstruction or gangrene; F32.A Depression, unspecified; F41.9 Anxiety disorder, unspecified; E78.5 Hyperlipidemia, unspecified; K59.00 Constipation, unspecified; Z79.02 Long term (current) use of antithrombotics/antiplatelets; Z88.8 Allergy status to other drugs, medicaments and biological substances; I25.2 Old myocardial infarction; Z90.89 Acquired absence of other organs; Z98.51 Tubal ligation status; Z90.710 Acquired absence of both cervix and uterus; Z98.890 Other specified postprocedural states; Z96.651 Presence of right artificial knee joint; Z87.891 Personal history of nicotine dependence; Z79.899 Other long term (current) drug therapy; Z79.82 Long term (current) use of aspirin; I25.10 Atherosclerotic heart disease of native coronary artery without angina pectoris; Z86.004 Personal history of in-situ neoplasm of other and unspecified digestive organs; Z95.5 Presence of coronary angioplasty implant and graft
CPT/HCPCS: 36415; 74176; 76705; 80048; 80053; 80069; 80076; 82272; 83690; 83735; 85014; 85018; 85025; 85027; 88304; 88305; 88342; 93005; 93010; 94760; 96365; 96366; 96375; 96376; 99285-25; A9270; G0378; J1100; J1170; J1885; J2270; J2371; J2405; J2543; J2704; J3010; J7030; J7120

== ENCOUNTER → 2023-02-05 | Outpatient (CLI) | payer MEDICARE, OTHER ==
[~2023-02-05] MED LIST changes: +OXAYDO5 M2 PO
[2023-02-05 09:48] LABS: BASOPHILS ABSOLUTE AUTO 0.03 K/mm3 (0.00-0.23); BASOPHILS PERCENT AUTO 1 % (0-2); EOSINOPHILS ABSOLUTE AUTO 0.25 K/mm3 (0.00-0.68); EOSINOPHILS PERCENT AUTO 4 % (0-6); Hematocrit 28.4 % (33.0-51.0); Hemoglobin 9.3 g/dL (11.5-16.0); IMMATURE GRAN ABSOLUTE AUTO 0.03 K/mm3 (0.00-0.10); IMMATURE GRAN PERCENT AUTO 1 % (0-1); LYMPHOCYTES PERCENT AUTO 15 % (21-46); MONOCYTES ABSOLUTE AUTO 0.31 K/mm3 (0.16-1.47); MONOCYTES PERCENT AUTO 5 % (4-13); Mean Corpuscular HGB 30.6 pg (26.0-34.0); Mean Corpuscular HGB Conc 32.7 g/dL (31.5-36.5); Mean Corpuscular Volume 93 fL (80-100); Mean Platelet Volume 8.9 fL (9.1-12.4); NEUTROPHILS ABSOLUTE AUTO 4.35 K/mm3 (1.96-9.15); NEUTROPHILS PERCENT AUTO 74 % (41-73); Platelet Count 455 K/mm3 (150-400); RDW Coefficient Variation 14.7 % (11.7-14.2); RDW Standard Deviation 49.1 fL (35.1-46.3); Red Blood Cell Count 3.04 M/mm3 (3.80-5.20); White Blood Cell Count 5.87 K/mm3 (4.00-11.30)
== END | disposition home or self-care (01) ==
LOC: LAB 09:44 → LAB SHORT 09:44
PROVIDERS: Family Medicine
DX: D64.9 Anemia, unspecified (principal)
CPT/HCPCS: 85025

== ENCOUNTER 2023-03-16 12:12 | Day surgery (SDC) | payer MEDICARE, OTHER ==
[~2023-03-16] VITALS: Ht 157.5 cm; Wt 77.9 kg
[2023-03-16] MEDS ORDERED: Prinivil10 MG (12:30)
[2023-03-16] MEDS ORDERED: AMLO5 (12:30)
[2023-03-16 14:19] VITALS: BP 115/73
== END 2023-03-16 14:14 | disposition home or self-care (01) ==
LOC: ORSCSDS 12:12
PROVIDERS: Surgery
PROC: 0DJ08ZZ Inspection of Upper Intestinal Tract, Via Natural or Artificial Opening Endoscopic (ICD-10-PCS; principal; 2023-03-16 13:30)
DX: Z87.11 Personal history of peptic ulcer disease (principal); K22.2 Esophageal obstruction; K44.9 Diaphragmatic hernia without obstruction or gangrene; E78.5 Hyperlipidemia, unspecified; I25.2 Old myocardial infarction; I10 Essential (primary) hypertension; F32.A Depression, unspecified; Z79.02 Long term (current) use of antithrombotics/antiplatelets; Z79.899 Other long term (current) drug therapy
CPT/HCPCS: J2704; J7120

== ENCOUNTER → 2023-07-04 | Outpatient (CLI) | payer MEDICARE, OTHER ==
[~2023-07-04] MED LIST changes: +AMLO5; +Prinivil10 MG
== END ==
LOC: LAB SHORT 09:11 → PLD 09:11
DX: D48.5 Neoplasm of uncertain behavior of skin (principal)
CPT/HCPCS: 88305

== ENCOUNTER 2023-07-10 21:04 | Emergency (ER) | payer MEDICARE, OTHER ==
[~2023-07-10] VITALS: Ht 167.6 cm; Wt 74.8 kg
[2023-07-10 21:25] LABS: BASOPHILS ABSOLUTE AUTO 0.03 K/mm3 (0.00-0.23); BASOPHILS PERCENT AUTO 1 % (0-2); EOSINOPHILS ABSOLUTE AUTO 0.28 K/mm3 (0.00-0.68); EOSINOPHILS PERCENT AUTO 4 % (0-6); Hematocrit 43.1 % (33.0-51.0); Hemoglobin 14.8 g/dL (11.5-16.0); IMMATURE GRAN ABSOLUTE AUTO 0.01 K/mm3 (0.00-0.10); IMMATURE GRAN PERCENT AUTO 0 % (0-1); LYMPHOCYTES ABSOLUTE AUTO 1.38 K/mm3 (0.84-5.20); LYMPHOCYTES PERCENT AUTO 22 % (21-46); MONOCYTES PERCENT AUTO 8 % (4-13); Mean Corpuscular HGB 31.4 pg (26.0-34.0); Mean Corpuscular HGB Conc 34.3 g/dL (31.5-36.5); Mean Corpuscular Volume 92 fL (80-100); Mean Platelet Volume 9.4 fL (9.1-12.4); NEUTROPHILS PERCENT AUTO 65 % (41-73); Platelet Count 276 K/mm3 (150-400); RDW Coefficient Variation 14.8 % (11.7-14.2); RDW Standard Deviation 50.3 fL (35.1-46.3); Red Blood Cell Count 4.71 M/mm3 (3.80-5.20)
[2023-07-10 21:40] LABS: International Normalized Ratio 0.99; Prothrombin Time Results 10.4 Sec (9.7-11.5)
[2023-07-10 21:49] LABS: Albumin, Blood 3.8 g/dL (3.4-5.0); Albumin/Globulin Ratio 1.1 (0.8-1.8); Bilirubin, Total 0.2 mg/dL (0.1-1.0); Bun/Creatinine Ratio 14.8 (12.0-20.0); Creatinine, Blood 1.08 mg/dL (0.40-1.00); Globulin, Blood 3.5 g/dL (2.2-4.0); Potassium, Blood 4.4 mmol/L (3.5-5.5); Total Protein, Blood 7.3 g/dL (6.4-8.2)
[2023-07-11 02:00] VITALS: BP 138/79
== END 2023-07-11 02:12 | disposition home or self-care (01) ==
LOC: ER 21:04
PROVIDERS: Emergency Medicine
DX: R07.2 Precordial pain (principal); Z79.02 Long term (current) use of antithrombotics/antiplatelets; Z87.891 Personal history of nicotine dependence; I10 Essential (primary) hypertension; E78.5 Hyperlipidemia, unspecified; I25.2 Old myocardial infarction; Z79.899 Other long term (current) drug therapy; Z88.6 Allergy status to analgesic agent; Z88.8 Allergy status to other drugs, medicaments and biological substances; Z91.041 Radiographic dye allergy status
CPT/HCPCS: 71045; 80053; 84484; 85025; 85610; 93005; 93010; 99284-25